=== PATIENT | male | born 1945 | race Caucasian/White ===

== ENCOUNTER → 2020-05-20 | Outpatient (CLI) | payer OTHER | LOC: RAD 08:03 | DX: M51.36 Other intervertebral disc degeneration, lumbar region (principal); M51.37 Other intervertebral disc degeneration, lumbosacral region; M47.817 Spondylosis without myelopathy or radiculopathy, lumbosacral region; M25.78 Osteophyte, vertebrae ==

== ENCOUNTER 2020-07-04 08:07 | Inpatient (IN) | payer OTHER ==
[2020-07-01 12:49] LABS: ABSOLUTE NEUTROPHILS 5.3 thou/uL (1.4-8.2); BASOPHILS 0.5 % (0.0-2.0); HEMATOCRIT 38.8 % (42.0-52.0); HEMOGLOBIN 12.8 gm/dL (14.0-18.0); LYMPHOCYTES 14.3 % (24.0-44.0); MCH 32.9 pg (26.0-34.0); MCHC 33.1 g/dL (28.0-37.0); MCV 99.3 fL (80.0-100.0); MONOCYTES 8.2 % (1.0-8.0); PLATELET COUNT 239 thou/uL (150-400); RBC 3.91 mil/uL (4.50-6.00); RDW 13.1 % (10.5-14.5); WBC 7.4 thou/uL (4.0-11.0)
[2020-07-01 12:56] LABS: URINE BILIRUBIN NEGATIVE (Negative); URINE BLOOD NEGATIVE (Negative); URINE CLARITY CLEAR; URINE COLOR YELLOW; URINE GLUCOSE-RANDOM* NEGATIVE (Negative); URINE KETONES NEGATIVE (Negative); URINE LEUKOCYTES-REFLEX NEGATIVE (Negative); URINE NITRITE-REFLEX NEGATIVE (Negative); URINE PROTEIN (DIPSTICK) NEGATIVE (Negative); URINE SPECIFIC GRAVITY <= 1.005 (1.005-1.035); URINE UROBILINOGEN 0.2 E.U./dl (0.2-1.0)
[2020-07-01 13:09] LABS: APTT 25.3 Seconds (24.5-32.8); PROTIME 10.1 Seconds (9.3-11.4)
[2020-07-01 13:15] LABS: ALBUMIN 4.2 g/dL (3.4-5.0); CREATININE 1.1 mg/dL (0.7-1.3); MAGNESIUM 2.2 mg/dL (1.8-2.4); POTASSIUM 4.5 mmol/L (3.5-5.1); TOTAL BILIRUBIN 0.3 mg/dL (0.2-1.0)
--- NOTE | 2020-07-01 13:35 | EKG ---
[facility] [place] [address] ELECTROCARDIOGRAM REPORT Name: ZENAIDAMARGARET Room #: PRE IN M.R.#: [id number] Admission: Attend Phys: Neda Mckay DO Discharge: Date of : 49 Report #: [id number] THIS REPORT FOR: cc: GISSELL CARDONA Physician not on staff Paulo Melara MD ~ THIS REPORT FOR: //name// [facility] Test Date: 2020-07-01 Test Time: 12:43:46 Pat Name: MARGARET ESTEVEZ Department: Room: Gender: M Field Representative/Health Education: MARIAA : 1945 Requested By: Tony Corrales Order Number: [id number] MD: Paulo Melara Measurements Intervals [place] Rate: 60 P: 51 SD: 246 QRS: 91 QRSD: 159 T: 20 QT: 434 QTc: 434 Interpretive Statements Ventricular-paced complexes No further rhythm analysis attempted due to paced rhythm Prolonged SD interval Nonspecific intraventricular conduction delay Baseline wander in lead(s) V4 No previous ECG available for comparison Electronically Signed On 07-01-2020 13:35:49 CDT by Paulo Melara [email or web address] <ELECTRONICALLY SIGNED> By: Paulo Melara MD 07/01/20 1335 1243 1243 Paulo Melara MD /EPI
[~2020-07-04] VITALS: Ht 167.6 cm; Wt 79.4 kg
[~2020-07-04 08:07] MED LIST: ACETAMINOPHEN500 M1 PO; ADVAIR 500-501 EACH INH; AMLODIPINE BESY10 MG PO; ASPIRIN325 PO; AVAPRO300 MG PO; AVODART0.5 MG PO; CHOLEST OFF450 MG PO; COREG CR20 MG PO; DIPHENHIST50 MG PO; DULCOLAX STOOL100 M1 PO; EFFIENT10 MG PO; FISH OIL 1,0001 EAC9 PO; FLOMAX0.4 MG PO; FLONASE 0.05%50 MCG NARES; HYDROCORTISONE3011 TOP; LEXAPRO20 MG PO; LIPITOR80 MG PO; LORAZEPAM 0.50.5 MG PO; MELATONIN5 MG PO; MIRALAX17 GM PO; MUCINEX1200 MG PO; MULTIVITAMINS1 EAC7 PO; NITROSTAT0.4 M1 SUBLING; PRILOSEC OTC20 MG PO; PROAIR HFA8.5 GM INH; SALONPAS1 EACH TOP; TRAMADOL 50 MG50 MG PO; TRAZODONE HCL50 MG PO; TUMS200 MG PO; ZADITOR5 M1 OPHTHALMIC; ZYRTEC10 M5 PO
[2020-07-04 09:26] VITALS: BP 146/63
--- NOTE | 2020-07-04 16:20 | O ---
[facility] [address] [address] OPERATIVE REPORT Name: MARGARET ESTEVEZ Room #: 150-7 ADM IN M.R.#: [id number] Admission: 07/04/20 Attend Phys: Geovany Hernandez MD Discharge: Date of : 49 Report #: [id number] THIS REPORT FOR: cc: GISSELL CARDONA Physician not on staff Tony Corrales MD ~ CC: Tony Hernandez Physician staff DATE OF SERVICE: 07/04/2020 PREOPERATIVE DIAGNOSIS: Degenerative disk disease L1-L5, spinal stenosis L1-L5, recurrent L2-L5, previous fusion L2-L3, previous laminectomy L2-L5, spondylolisthesis L1-L2, instability L3-L4. PROCEDURE: Remove posterior instrumentation L2-L3, explore fusion with findings of solid fusion. New posterior segmental instrumentation L1-L5, reinsertion of instrumentation L2-L3, posterior posterolateral fusion L1-L2, posterior posterolateral fusion L3-L4, posterior posterolateral fusion L4-L5, augmentation of fusion L2-L3. Bilateral laminectomy with partial facetectomy and neural foraminotomy of L1. Redo bilateral laminectomy with partial facetectomy and neural foraminotomy of L2. Redo bilateral laminectomy with partial facetectomy and neural foraminotomy of L3. Redo bilateral laminectomy with partial facetectomy and neural foraminotomy of L4. Redo bilateral laminectomy with partial facetectomy and neural foraminotomy of L5. Fluoroscopy. Serial fluoroscopic views. Total time less than 20 minutes. Autograft bone graft, allograft bone graft. SURGEON: Tony Corrales M.D. SECURITY ENGINEER SURGEON: Ele Brito. ANESTHESIA: General via endotracheal tube. INDICATIONS: The patient has had intractable back and bilateral leg pain. He has proved refractory to all forms of multiple modality conservative management. He has requested that we proceed with operative intervention. He understands the risks of surgery. He understands the risk to be , DVT, pulmonary embolism, paraplegia, loss of bowel or bladder function, loss of sexual function, possibility of bleeding, bleeding requiring transfusion, transfusion attendant risks of AIDS, hepatitis, infection, instability, the need for revision, prolonged hospital stay, dural leak, spinal headache, infection and again he requested we proceed. [address] [address] OPERATIVE REPORT Name: MARGARET ESTEVEZ Room #: 150-7 ADM IN M.R.#: [id number] Admission: 07/04/20 Attend Phys: Geovany Hernandez MD Discharge: Date of : 49 Report #: [id number] DESCRIPTION OF PROCEDURE: The patient was brought to the operating room and administered general anesthesia via endotracheal tube. Lower extremities were treated with CANDELARIO hose and intermittent compression stockings. He received 2 grams of Ancef. A Lugo catheter was placed. He was positioned on the Micheal table in the prone position with all bony prominences padded appropriately. Care was taken to ensure the shoulders not abducted more than 90 degrees. The elbows flexed more than 90 degrees. There was no undue pressure on the cubital or carpal canals. The area of the anterior-superior iliac spine was well padded to protect the lateral femoral cutaneous nerve. Hips and knees were well padded. There was no pressure on the dorsum of the feet. The patient's low back was defatted with alcohol visualized under fluoroscopy and the pedicles of L1 through S1 were marked on the patient's back for surgical reference. Sharp dissection was then continued down through the skin and subcutaneous tissues to the level of the deep fascia and at the level of the deep fascia of the tips of the spinous processes were subperiosteally exposed where they remained. This was basically at L1 and L5. Care was taken to avoid inadvertent penetration of the dura when dissecting from L2-L5 as there had been previous violation and there was unprotected dura. Dissection continued until we had the bony margins exposed and the transverse processes exposed of L1 through L5. We then affixed clamp to the tips of the spinous processes and obtained a lateral fluoroscopic view to confirm our levels and to give us our pedicle directions. We skeletonized the instrumentation at L2-L3 and it was removed. We then continued the dissection deeper to expose the lamina and the dura bone interface. When complete, we had decompression or exposure of the previous decompression from L2-L5, the lamina of L1 and all spinous processes from L1-L5. We decorticated the base of the transverse process in line with the lateral facet at L1 and inserted a pedicle probe and inserted to a depth of 40 mm in the direction dictated by the previously obtained fluoroscopy view with the fluoroscopy view aiding in our direction. We then moved to the L2 and L3 levels and palpated those holes from the previous screws that had been removed and inserted bone wax for hemostatic tamponade. We went to L4, decorticated, inserted the pedicle probe, drilled it to a depth of 40 mm in the direction dictated by the fluoroscopy view and repeated this at L5. We then put metallic markers and bone wax in the hole. We then repeated this on the patient's left side. With both sides now marked for the new screws at L1 and L4 and L5 and then reinsertion at L2 and L3, we obtained AP and lateral fluoroscopy views and showed that we had excellent position of all markers within the pedicles. We therefore removed the pedicle markers. We inserted the pedicle probe yet again, palpated the pedicle to ensure no cortical violation. We then tapped the hole and decorticated posterolaterally and performed a posterolateral fusion from L1-L2, L2-L3, L3-L4, L4-L5. This was done with synthetic bone soaked in the patient's own blood from the suctioning during fashioning the holes for the pedicle screws. This blood is known to be rich in stem cells. The synthetic bone was packed at L1-L2 and then we inserted the screw of L2, decorticated posterolaterally at L3 and packed the bone graft and inserted the screw at L3, removed the marker, tapped the [facility] [address] [place] [address] OPERATIVE REPORT Name: MARGARET ESTEVEZ Room #: 150-7 ADM IN M.R.#: [id number] Admission: 07/04/20 Attend Phys: Geovany Hernandez MD Discharge: Date of : 49 Report #: [id number] hole, palpated the hole to ensure cortical integrity and then decorticated, placed the bone graft and then inserted the screw and then we repeated this at L5. We did this bilaterally. When complete, we had the screw set at L1 through L5 with reinsertion at L2 and L3. We measured, cut and contoured a sangeetha for optimal lordosis and realignment of the spine as the patient had significant malalignment and instability, particularly at L1-L2 and L3-L4, to a lesser degree at L4-L5. The rods inserted. The caps were applied and then they were torqued to appropriate tightness in all screw heads. Final AP and lateral fluoroscopy view revealed excellent position of all instrumentation, well aligned spine and the instrumentation was deemed complete other than a transverse connector that was placed and set aside for later use. We then began the decompression. The residual lamina of L1 was exposed. It was drilled to its anterior cortex. A micro curette was used to separate the scarred dura from the undersurface of the lamina and there was considerable scar. Hematoma must have moved cephalad in the epidural space. We had to use redo technique at L1 to remove the lamina first with a micro curette, the scarred dura beneath and then resection of the overlying bone with at times 2 and other times 3 mm Kerrison until we had a wide central decompression. We then moved down to the very scarred remaining previous decompressed spine from L2 to the sacrum and we marched down the right side, the dura from the lamina residual margins and then resecting until we had a wide decompression and could perform neural foraminal decompressions in redo fashion at L2, L3, L4 and L5. We then moved to the left side and performed exactly the same procedure doing a redo decompression with bilateral laminectomy, partial facetectomy and neural foraminotomies of L2, L3, L4 and L5. When complete, the spine was widely decompressed. All nerve root probed completely free. The final x-rays looked superb. Final blood loss was about 100 mL. We irrigated with a liter of antibiotic-containing solution, placed a transverse connector, torqued all fittings to appropriate tightness, placed a deep drain medium Hemovac, closed the deep fascial layer with 0 Ethibond in [id number] interrupted fashion after obtaining meticulous hemostasis, closed the deep fascial layer with 0 Ethibond in kyblwg-[id number]-abrok interrupted fashion, deep subQ with 0 Vicryl, superficial subcutaneous 2-0 Vicryl and the skin was closed with stainless steel tashia. The patient tolerated the procedure well. Dressing was applied including Xeroform, sterile dressing, sponges and a bioclusive. The patient was being transported to the recovery room for close neurovascular observation, continue prophylactic antibiotic and serial neurovascular exams. Final blood loss 100 mL. No specimen. The patient tolerated the procedure well and was going to the recovery room for final discharge to the floor when stable. <ELECTRONICALLY SIGNED> By: Tony Corrales MD 07/04/20 1620 1533 1600 Tony Corrales MD /nt
[2020-07-04 17:26] VITALS: BP 142/60
[2020-07-04 17:27] LABS: ABSOLUTE NEUTROPHILS 14.1 thou/uL (1.4-8.2); BASOPHILS 0.2 % (0.0-2.0); EOSINOPHILS 0.1 % (0.0-3.0); HEMATOCRIT 37.9 % (42.0-52.0); HEMOGLOBIN 12.7 gm/dL (14.0-18.0); LYMPHOCYTES 3.2 % (24.0-44.0); MCHC 33.6 g/dL (28.0-37.0); MCV 98.2 fL (80.0-100.0); MONOCYTES 2.5 % (1.0-8.0); PLATELET COUNT 225 thou/uL (150-400); RBC 3.85 mil/uL (4.50-6.00); RDW 13.3 % (10.5-14.5)
[2020-07-04 17:38] LABS: CALCIUM 8.6 mg/dL (8.5-10.1); CREATININE 1.2 mg/dL (0.7-1.3); POTASSIUM 4.3 mmol/L (3.5-5.1)
[2020-07-04 17:42] LABS: ALBUMIN 3.8 g/dL (3.4-5.0); MAGNESIUM 1.8 mg/dL (1.8-2.4); TOTAL BILIRUBIN 0.4 mg/dL (0.2-1.0); TOTAL PROTEIN 6.7 g/dL (6.4-8.2)
[2020-07-04 17:43] LABS: TROPONIN-I <0.06 ng/mL (<0.06)
--- NOTE | 2020-07-04 20:19 | NUR ---
PATIENT ADMITTED FROM OR WITH LUMBAR LAMINECTOMY WITH FUSION. PATIENT ARRIVED ON THE UNIT, VERY DROWSY AND C/O CHEST PAIN. RAYMUNDO/USED CAR LOT PORTER ON THE UNIT, WANTS PATIENT TRANSFERRED TO MED-SURG TELE. THIS RN NOTIFIED ROSA MARIA/ZEESHAN STREETER. OK TO TRANSFER TO ROOM 456. AT BEDSIDE. DR BOYER CAME TO THE ROOM, EKG WAS DONE. PATIENT DIDNT C/O ANY CHEST PAIN, BUT DID C/O BACK PAIN, ALSO C/O NAUSEA. THIS RN GAVE DILAUDID 0.5MG X 1, ZOFRAN 4MG IV, PEPCID IV, AND REGLAN IV GIVEN. WENT BACK TO CHECK ON THE PATIENT, AND HE WAS TRYING TO CLIMB OUT OF THE BED, AT THIS TIME PATIENT WAS MOVED TO 453, BY THE NURSES STATION. THIS RN NOTIFIED OF ROOM CHANGE AND UPDATED HER ON HER 'S CONDITION. ADMISSION DONE EXCEPT TELE STRIP. REPORT GIVEN TO LEIGHTON/JAYA.
[2020-07-04 21:03] VITALS: BP 152/62
--- NOTE | 2020-07-05 03:49 | NUR ---
VSS-AFEBRILE. LUNGS CLEAR-ROOM AIR. CPAP WORN WHEN SLEEPING. C/O SIGNIFICANT LOWER BACK PAIN, PARTIALLY RELIEVED WITH ALTERNATING IV AND PO PAIN MEDICATIONS. LUMBAR DRESSING HAS SMALL AMOUNT OF DRIED SHADOW DRAINAGE, HEMOVAC DRAINING MODERATE AMOUNTS OF SANGUINEOUS FLUID TO DRAIN. ABLE TO KEY, ALL SENSATION INTACT. WHEN MEDICATED, CAN BE IMPULSIVE AND ATTEMPT TO GET OUT OF BED. FALL PRECAUTIONS IN PLACE.
[2020-07-05 06:18] LABS: ABSOLUTE NEUTROPHILS 12.5 thou/uL (1.4-8.2); BASOPHILS 0.1 % (0.0-2.0); HEMATOCRIT 34.3 % (42.0-52.0); HEMOGLOBIN 11.4 gm/dL (14.0-18.0); LYMPHOCYTES 3.8 % (24.0-44.0); MCH 33.1 pg (26.0-34.0); MCHC 33.3 g/dL (28.0-37.0); MCV 99.2 fL (80.0-100.0); MONOCYTES 6.2 % (1.0-8.0); PLATELET COUNT 204 thou/uL (150-400); POLYS 89.9 % (36.0-66.0); RBC 3.45 mil/uL (4.50-6.00); RDW 13.4 % (10.5-14.5); WBC 13.9 thou/uL (4.0-11.0)
[2020-07-05 06:48] LABS: CALCIUM 8.4 mg/dL (8.5-10.1); CREATININE 1.2 mg/dL (0.7-1.3); MAGNESIUM 1.8 mg/dL (1.8-2.4); POTASSIUM 4.5 mmol/L (3.5-5.1)
[2020-07-05 07:41] VITALS: BP 164/60
--- NOTE | 2020-07-05 08:29 | EKG ---
[facility] [place] [address] ELECTROCARDIOGRAM REPORT Name: MARGARET ESTEVEZ Room #: 453-P ADM IN M.R.#: [id number] Admission: 07/04/20 Attend Phys: Geovany Hernandez MD Discharge: Date of : 49 Report #: [id number] THIS REPORT FOR: cc: GISSELL CARDONA Physician not on staff Ney De Leon MD [facility] THIS REPORT FOR: //name// [facility] Test Date: 2020-07-04 Test Time: 17:38:47 Pat Name: MARGARET ESTEVEZ Department: Room: [facility] Gender: M Assistant Track Coach: Kash ASTORGA : 1945 Requested By: Nuvia Chen Order Number: [id number] MD: Ney De Leon Measurements Intervals [place] Rate: 60 P: ID: 178 QRS: 101 QRSD: 157 T: 41 QT: 451 QTc: 451 Interpretive Statements Atrial-ventricular dual-paced complexes No further rhythm analysis attempted due to paced rhythm Compared to ECG 07/01/2020 12:43:46 No significant change was found Electronically Signed On 07-05-2020 8:29:40 CDT by Ney De Leon [email or web address] <ELECTRONICALLY SIGNED> By: Ney De Leon MD, [facility] 07/05/20 0829 1738 1738 Ney De Leon MD, [facility] /EPI
[2020-07-05] MEDS ORDERED: PERCOCET 10-321 EACH PO (09:33)
--- NOTE | 2020-07-05 09:46 | NUR ---
cm visited with pt and spouse at bedside, he was up in recliner chair. physical therapy was going to work with him. cont to wear own face mask and shield. pt stated, live home with , independent prior to. 3 steps with hr x 1 from garage, 3 steps from front with hr x 2 . 13 steps to basement, which he doesnt have to do. manage own medication. drives vehicle. cpap at hs that works, fww, cane and shower built in bench. [facility] if ordered by surgeon. dcp: home no needs over the weekend (wednesday ) or if needs hh fax dc order to [facility] [phone].
[2020-07-05] MEDS ORDERED: ROBAXIN 750 MG750 MG PO (10:50)
[2020-07-05] MEDS ORDERED: COREG6.25 MG PO (10:50)
[2020-07-05] MEDS ORDERED: ZESTRIL5 MG PO (14:35)
--- NOTE | 2020-07-05 14:39 | NUR ---
IF PT WOULD DC OVER THE WEEKEND PLEASE FAX DC ORDERS/SUMMARY TO [facility] #[phone] AND CALL [phone] AND NOTIFY OF DC.
[2020-07-05 16:43] VITALS: BP 142/50
--- NOTE | 2020-07-05 16:59 | NUR ---
PT ALERT AND ORIENTED TIMES FOUR. BP ELEVATED THIS MORNING SCHEDULED PT MEDS TAKEN. OTHER VSS. PT C/O PAIN PRN PAIN MEDICATIONS GIVEN WITH GOOD RELEIF. WORTHY TO DD. HEMOVAC DRAIN TO BACK INTACT. PT UP WITH STANDBY ASSIST. PT TOLERATES MEDS AND MEALS. PT AT BEDSIDE. PT SLOWLY PROGRESSING [facility] POC GOALS.
[2020-07-05 19:39] VITALS: BP 146/52
--- NOTE | 2020-07-06 06:00 | NUR ---
Pt. rested quietly at intervals during the night when checked on during frequent rounds. He has been given pain meds (see emar) for c/o back pain with some relief noted. Hemovac with back dressing is dry and intact. No c/o nausea.
[2020-07-06 07:30] VITALS: BP 149/58
[2020-07-06 15:45] VITALS: BP 129/44
[2020-07-06 20:24] VITALS: BP 129/49
[2020-07-07] VITALS (8 sets, daily range): BP systolic 104–173; BP diastolic 39–66
--- NOTE | 2020-07-07 00:40 | NUR ---
ASSUMED CARE OF PT AT 1900. PT IS A/O X4 AND IS UP SBA WITH WALKER AND GB. PT C/O STOMACH PAIN, AND NEEDING TO HAVE A BOWEL MOVEMENT. HE STATED HIS LAST BOWEL MOVEMENT WAS OVER A WEEK AGO.STOOL SOFTNER GIVEN WITH HS MEDS. PT HAS HAD SEVERAL TRIPS TO THE BATHROOM. PASSING FLATUS BUT STILL HASN'T HAD A BOWEL MOVEMENT. PT C/O NAUSEA RELATED TO STOMACH AND GAS PAIN IN STOMACH. PRN NAUSEA MEDICATION GIVEN DIRECTED. C/O PAIN TO LOWER BACK AT A LEVEL 6 BUT SAID HE IS TRYING TO NOT TAKE SO MUCH HE STATES IT MAKES HIM FEEL UNEASY AND NOT NORMAL. SPOKE WITH WITH X2 GIVING UPDATES. CURRENTLY PT IS LYING IN HIS BED AND APPEARS TO BE SLEEPING. CPAP PROVIDED WITH CONTINOUS PULSE OX. SCD'S, AND FALL PRECAUTIONS ARE IN PLACE, CALL LIGHT IS WITHIN REACH. WILL CONTINUE TO MONITOR.
[2020-07-07 13:10] LABS: HEMATOCRIT 33.5 % (42.0-52.0); HEMOGLOBIN 11.5 gm/dL (14.0-18.0)
--- NOTE | 2020-07-07 19:58 | NUR ---
A/O, calm and coopreative. naused and vomitted. no signs of bile or blood in the emesis.
--- NOTE | 2020-07-08 03:38 | NUR ---
ASSUMED CARE OF PT AT 1900. PT IS A/O X4. PT C/O PAIN IN BACK AND STOMACH. PRN PAIN MEDICATIONS GIVEN. NO C/O N/V THIS SHIFT. PT AMBULATED IN THE HALLWAY APPROXIMATELY 50 STEPS. PT ACCIDENTLY REMOVED IV TO RIGHT WRIST WHILE REPOSITIONING IN BED. USING LEFT HAND IV FOR IV FLUIDS AND MEDICAITONS. DRSG TO LOWER BACK IS C/D/I WITH NO DRAINAGE. SCD'S APPLIED AND LEGS ELEVATED ON A PILLOW. NO BM THIS EVENING BUT PT IS PASSING SMALL AMOUNTS OF FLATUS. FALL PRECAUTIONS ARE IN PLACE, CALL LIGHT IS WITHIN REACH. WILL CONTINUE TO MONITOR.
[2020-07-08 07:30] VITALS: BP 112/93
[2020-07-08 15:17] VITALS: BP 154/63
[2020-07-08 19:27] VITALS: BP 149/57
--- NOTE | 2020-07-08 19:41 | NUR ---
Patient had one small BM, voicing he passed gas a lot.
--- NOTE | 2020-07-09 02:31 | NUR ---
PATIENT AOX4 MAKES NEEDS KNOWN. PATIENT DRESSING ON BACK IS C/D/I. PAIN CONTROLLED THIS SHIFT. PATIENT DENIED NAUSEA/VOMIT THIS SHIFT.PATIENT IS STAND BY ASSIST X1. PATIENT NEEDS MINIMUM ASSISTANCE WITH ADL, BED MOBILITY, TRANSFER AND TOILETING. PATIENT IN BED ASLEEP AT THIS TIME BREATHING REGULAR AND UNLABOURED.
[2020-07-09 09:05] VITALS: BP 161/72
--- NOTE | 2020-07-09 11:07 | NUR ---
PT STILL HAVING PAIN, N/V, AND ISSUES WITH BM. GI CHANGED PT TO CLEAR LIQUID DIET. IT IS ANTICIPATED THAT PT WILL DISCHARGE HOME WITH [facility] ONCE MEDICALLY STABLE. CM TO FOLLOW INDICATED WITH DC PLANNING.
--- NOTE | 2020-07-09 14:42 | NUR ---
Assumed patient care at 0715. Patient was NPO due to the possibility of an ileus until this afternoon. Patient had a fusion and laminectomy from L1 to L5 on 07/04/20. He has been having Orthostatic Hypotension with dizzyness, vomiting and nausea. The only po medication he was given this am was Lisinopril 5mg po due to Systolic Blood Pressure of 161. He has been given Ondansetron IV push x's 2 for nausea; this has been helpful. He has been given Hydrocodone po x's 1, Oxycodone 1 tab po x's 1, Hydromorphone 0.25mL IV Push x's 1, Metaclopramide 5mg po x's 1 for nausea and Oxycodone 2 tabs po x's 1. All of these medications have been necessary and helpful. Patient has not always directly asked for pain and nausea medications. This nurse has suggested them some of the time as patient has been concerned about taking too many. Education provided by this nurse and Physicians per pain control. Both patient and express and understanding. Will continue to monitor.
--- NOTE | 2020-07-09 22:27 | NUR ---
ASSUMED PT CARE AT 1900. BP IS ELEVATED BUT PT DOES HAS HIGH BP A BASELINE. REST OF THE VITALS WERE STABLE. A&OX4. ROOM AIR. CPAP AT NIGHT. PT STATES THAT HE HAD A SMALL BM TODAY. PT IS PLEASANT BUT STATES THAT HE IS IN PAIN 4/10. I ASKED HIM IF HE WANTED MEDS FOR THE PAIN, HE SAID THAT HE COULD WAIT TILL I BROUGHT HIS EVENING MEDS. ONCE THE TECH GOT THE VITALS HE WAS IN MORE PAIN8/10. I BROUGHT IN HIS EVENING MEDS WITH OXYCODONE. I CAME BACK TO ADMINISTER A 2200 MED AND HE STATED THAT HE FELT BETTER. PT IS ASLEEP IN HIS ROOM. I WILL CONTINUE TO MONITOR.
[2020-07-10] VITALS (10 sets, daily range): BP systolic 120–150; BP diastolic 45–68
--- NOTE | 2020-07-10 11:31 | NUR ---
Received awake on bed. Due medications given as prescribed, able to swallow meds w/o difficulty. On room air. Vital signs stable. On clear liquid diet- tolerating well; no nausea, no vomiting and no abdominal pain noted. A+Ox4, compliant and cooperative with care. On MS, not on telemetry; no complaints of chest pain, crushing sensaton and heaviness. Using CPAP and continous pulse oximetry at night. Cotinent of bowel and bladder, using urinal at times; able to go to the toilet with standby assist and gait belt. With NS at 125cc/hr, infusing well at R FA. S/P lumbar surgery, no drain; dressing C/D/I. Pt seen and examined by Cardio LOFT PATTERNMAKER- orthostatic BP obtained; to ask if ok to resume anti-platelet meds- Dr Mistry informed, ok to resumed meds. Visited by his this AM, update given. Seen and examined by Dr Mistry- for possible discharge tomorrow AM, pt updated; may progress diet to full liquids for lunch then to advance as tolerated- pt seen and examined by Gastro LOFT PATTERNMAKER and agreed with progress of diet. Seen by physical therapist, able to sit out on the chair and walk in the hallway, tolerated session. To continue monitoring patient.
--- NOTE | 2020-07-10 11:51 | NUR ---
CARE TEAM INDICATED THAT DISCHARGE IS ANTICPATED FOR TOMORROW HOME WITH HOME HEALTH SERVICES THROUGH [facility]. PT IS HAVING SOME ISSUES WITH ORTHOSTATIC BP. CM TO FOLLOW INDICATED WITH DC PLANNING.
--- NOTE | 2020-07-10 16:19 | NUR ---
FAXED REFERRAL TO [facility] SPOKE WITH HANG IN INTAKE SHE RECEIVED REFERRAL AND WILL ACCEPT AT [facility].
[2020-07-11] VITALS (7 sets, daily range): BP systolic 120–178; BP diastolic 48–80
--- NOTE | 2020-07-11 06:58 | NUR ---
PROGRESS PT A/O X4 UP AD DINA AMBULATING FREQUENTLY IN HALLS TOLERATING WELL TAKING 2 PERCOCET 10 MG TABLETS WITH EFFECT. INCISION TO LUMBAR SPINE COVERED WITH SURGICAL DRESSING SCANT FAINT QUARTER SIZED AREA OF OLD SEROUS DRAINAGE NOTED. PT PLANS ON DC HOME TODAY WITH HH.
[2020-07-11] MEDS ORDERED: MECLIZINE HCL25 MG PO (10:17)
[2020-07-11] MEDS ORDERED: Transderm-Scop 1MG/7 TRANSDERM ×2 (10:17→17:07)
--- NOTE | 2020-07-11 11:07 | NUR ---
CARE TEAM INDICATED THAT PT IS MEDICALLY STABLE TO DISCHARGE HOME THIS DAY WIT [facility] PT, OT, ST, NURSING. PT'S SPOUSE TO PROVIDE TRANSPORT HOME THIS DAY. NO OTHER CM INTERVENTION INDICATED. CASE CLOSED.
--- NOTE | 2020-07-11 12:22 | NUR ---
Assumed pt care this am, VS dwain was able to work with PT and OT today. DC orders given, precriptions given and dc instructions given to he and pt. SCD's on, diet nad medications are well tolerated. IV removed. POC followed, pain is managed with medications. Written prescriptions in the chart for percocet 10/325 # 90 and methocarbamol 750mg # 120 were not given since hospitalist changed dose and sent the prescription straight to the pharmacy. Awaiting for pt to have lunch will be picked up by the and son.
--- NOTE | 2020-07-11 15:49 | NUR ---
PT'S SPOUSE CALLED UNIT AND INDICATED THAT SHE WAS AT PHARMACY AND WASN'T ABLE TO GET PT'S TRANSDERMAL SCOPOLAMINE PATCH WITHOUT A SCRIPT AND HADN'T BEEN GIVEN ONE. CM NOTIFIED NURSE WHO SENT PHYSICIAN A MESSAGE. CM TEXT PHYSICIAN WELL. CM PROVIDED PHYSICIAN PHONE NUMBER FOR PT'S PHARMACY.
[2020-07-11] MEDS ORDERED: TRANSDERM-SCOP1 EACH TOP (15:52)
[2020-07-11] MEDS ORDERED: TRANSDERM-SCOP1 EACH TRANSDERM (17:07)
== END 2020-07-11 14:07 | disposition home health service (06) | DRG 460 ==
LOC: 4W 08:07 → TBA 08:07 → PRE 09:40 → 4S 16:50 → 4W 17:28
PROVIDERS: Hospitalist; Nurse Practitioner; ATTEND Internal Medicine
PROC: 0SG00J1 Fusion of Lumbar Vertebral Joint with Synthetic Substitute, Posterior Approach, Posterior Column, Open Approach (ICD-10-PCS; principal; 2020-07-04)
PROC: 01NB0ZZ Release Lumbar Nerve, Open Approach (ICD-10-PCS; principal; 2020-07-04)
PROC: BR191ZZ Fluoroscopy of Lumbar Spine using Low Osmolar Contrast (ICD-10-PCS; principal; 2020-07-04)
DX: M43.16 Spondylolisthesis, lumbar region (principal); G90.8 Other disorders of autonomic nervous system; Z03.818 Encounter for observation for suspected exposure to other biological agents ruled out; G47.30 Sleep apnea, unspecified; Z95.0 Presence of cardiac pacemaker; Z95.1 Presence of aortocoronary bypass graft; I10 Essential (primary) hypertension; E78.5 Hyperlipidemia, unspecified; F41.8 Other specified anxiety disorders; I25.10 Atherosclerotic heart disease of native coronary artery without angina pectoris
CPT/HCPCS: 10040; 10045; 50010; 50101; 50402; 50455; 50850; 51412; 51878; 56524; 56528; 58246; 58247; 58248; 58249; 58250; 58251; 62110; 62900; 70005

== ENCOUNTER → 2020-07-19 | Outpatient (CLI) | payer OTHER ==
[~2020-07-19] MED LIST changes: +COREG6.25 MG PO; +MECLIZINE HCL25 MG PO; +PERCOCET 10-321 EACH PO; +ROBAXIN 750 MG750 MG PO; +TRANSDERM-SCOP1 EACH TOP; +TRANSDERM-SCOP1 EACH TRANSDERM; +Transderm-Scop 1MG/7 TRANSDERM; +ZESTRIL5 MG PO
== END ==
LOC: RAD 10:04
DX: M47.816 Spondylosis without myelopathy or radiculopathy, lumbar region (principal); M48.07 Spinal stenosis, lumbosacral region; M25.78 Osteophyte, vertebrae

== ENCOUNTER → 2020-08-30 | Outpatient (CLI) | payer OTHER | LOC: RAD 11:37 | DX: M43.26 Fusion of spine, lumbar region (principal); I25.10 Atherosclerotic heart disease of native coronary artery without angina pectoris ==